=== PATIENT | female | born 1955 | race Caucasian/White ===

== ENCOUNTER 2021-02-18 15:04 | Inpatient (IN) | payer MEDICARE, OTHER ==
[~2021-02-18] VITALS: Ht 162.6 cm; Wt 60.3 kg
[2021-02-18 15:50] LABS: *BILIRUBIN,URIN NEGATIVE (NEGATIVE); *BLOOD, URINE NEGATIVE (NEGATIVE); *CLARITY,URINE CLEAR (CLEAR); *COLOR,URINE YELLOW (YELLOW); *KETONES,URINE NEGATIVE (NEGATIVE); *UROBILINOGEN,URINE 0.2 E.U./dl (NORMAL); LEUKOCYTE ESTERASE ,URINE NEGATIVE (NEGATIVE); NITRITE, URINE NEGATIVE (NEGATIVE); UGLUCOSE NEGATIVE (NEGATIVE)
[2021-02-18 15:51] LABS: HEMATOCRIT 46.5 % (31.2-41.9); MEAN CORPUSCULAR HEMOGLOBIN 29.9 uug (24.7-32.8); MEAN CORPUSCULAR VOLUME 88.7 fL (75.5-95.3); PLATELET COUNT (AUTO) 342 K/uL (179-408)
[2021-02-18 16:01] LABS: CARBON DIOXIDE 32 mmol/L (21-32); CHLORIDE 96 mmol/L (98-107); CREATININE 0.9 mg/dL (0.6-1.3); ETHANOL < 3 MG/DL (0-0); GLUCOSE 161 mg/dL (74-106); POTASSIUM 4.5 mmol/L (3.5-5.1); UREA NITROGEN, BLOOD 12 mg/dL (7-18)
[2021-02-18 16:04] LABS: *AMPHETAMINE, URINE NEGATIVE (NEGATIVE); *CANNABINOID, URINE NEGATIVE (NEGATIVE); *COCCAINE, URINE NEGATIVE (NEGATIVE); *OPIATE, URINE NEGATIVE (NEGATIVE); *PHENCYCLIDINE SCREEN,URINE NEGATIVE (NEGATIVE)
[2021-02-18 16:07] LABS: ALANINE AMINOTRANSFERASE 29 U/L (14-59); ALKALINE PHOSPHATASE 86 U/L (50-136); ASPARTATE AMINOTRANSFERASE 16 U/L (15-37); BILIRUBIN,DIRECT 0.1 mg/dL (0.0-0.2); BILIRUBIN,TOTAL 0.5 mg/dL (0.2-1.0); TOTAL PROTEIN, SERUM 8.8 g/dL (6.4-8.2)
[2021-02-18 16:08] LABS: ACETAMINOPHEN < 2.0 ug/mL (10-30)
--- NOTE | 2021-02-18 16:14 | NUR ---
CALLED MICHELL CHRISTINA, FOR THE MED LIST. SHE WILL FAX IT.
[2021-02-18 16:35] LABS: THYROID STIMULATING HORMONE 1.296 mIU/mL (0.358-3.740)
[2021-02-18] MEDS ORDERED: CLONIDINE HCL 0.1 MG TABLET PO ONE ×3 (17:30→18:30)
[2021-02-18] MEDS ORDERED: CLONIDINE HCL 0.1 MG TABLET ONE ×2 (17:34→18:19)
--- NOTE | 2021-02-18 17:37 | NUR ---
DINNER TRAY PROVIDED FOR PT. PT EATING WITH GOOD APETITE.
[2021-02-18] MEDS ORDERED: AMLO10TA59 PO (18:23)
[2021-02-18] MEDS ORDERED: HYDR-4077 PO (18:23)
[2021-02-18] MEDS ORDERED: ASPI-866 PO (18:23)
[2021-02-18] MEDS ORDERED: LEVO75TA7 PO (18:23)
[2021-02-18] MEDS ORDERED: MULT-594 PO (18:23)
[2021-02-18] MEDS ORDERED: IBUP-1957 PO (18:23)
[2021-02-18] MEDS ORDERED: ATOR40TA PO (18:23)
[2021-02-18] MEDS ORDERED: CYAN100T44 PO (18:23)
[2021-02-18] MEDS ORDERED: SIMV-49 PO (18:23)
[2021-02-18] MEDS ORDERED: SERT100T PO (18:23)
[2021-02-18] MEDS ORDERED: VITA400T9 PO (18:23)
[2021-02-18] MEDS ORDERED: MAGN400C PO (18:24)
--- NOTE | 2021-02-18 18:24 | NUR ---
MED RECON MADE BASED ON PT'S MEDICATION BOTTLES.
--- NOTE | 2021-02-18 18:25 | NUR ---
Gps/Banking Consultant- Received report janet Perez RN ER. Admitted from ER via [facility] accompanied by Nursing Grocery Caddy [facility]. Croatian female patient anxious, responding to internal stimuli, talking to self..A/O x2 anxious, figity, emotionally labile , holding stuff animals , claimed that its her baby. Oriented to unit setting
[2021-02-18 18:30] VITALS: BP 179/85
--- NOTE | 2021-02-18 18:30 | NUR ---
PT TRANSFERED TO [facility] IN STABLE CONDITION. PT REMAINED CALM/COOPERATIVE THEWHOLE ER STAY, ONE TO ONE SITTER AT BEDSIDE. PTDENEIS ANY PAIN,HEADACHE, N/V OR DIZZINESS.
[2021-02-18] MEDS ORDERED: ACETAMINOPHEN 325 MG TABLET PO PRN (18:45)
[2021-02-18] MEDS ORDERED: MAGNESIUM HYDROXIDE 30 ML LIQUID UDC PO PRN (18:45)
[2021-02-18] MEDS ORDERED: MAG HYDROX/AL HYDROX/SIMETH 30 ML LIQUID UDC PO PRN (18:45)
[2021-02-18] MEDS ORDERED: BLOOD SUGAR DIAGNOSTIC 1 EACH STRIP VI ONE (18:45)
[2021-02-18] MEDS ORDERED: IBUPROFEN 800 MG TABLET PO PRN (19:00)
[2021-02-18 20:07] VITALS: BP 126/54
[2021-02-18] MEDS: CLONAZEPAM 0.5 MG TABLET PO PRN (22:00)
[2021-02-18] MEDS: ATORVASTATIN 40 MG TABLET PO SCH (22:00)
[2021-02-19] MEDS: LEVOTHYROXINE SODIUM 75 MCG TABLET PO SCH (06:33)
[2021-02-19 07:30] VITALS: BP 109/53
[2021-02-19 07:37] LABS: BILIRUBIN,TOTAL 0.6 mg/dL (0.2-1.0); POTASSIUM 4.8 mmol/L (3.5-5.1); TOTAL PROTEIN, SERUM 7.7 g/dL (6.4-8.2)
--- NOTE | 2021-02-19 08:55 | NUR ---
WILLY Initial Discharge Note Pt currently resides at [facility] located at [address] [place] [address] ([phone]). WILLY contacted [facility] and spoke with Lalita, wool carder of facility, who stated police moved pt out and pt is not able to return. Lalita advised SW to follow-up with pt's case management social worker, Pascale العلي with [facility]. WILLY called and left message for Pascale requesting call back to discuss treatment and discharge plan. WILLY will continue to work with pt, case management social worker, and MD to ensure a safe and proper discharge.
[2021-02-19] MEDS ORDERED: VITAMIN E MIXED 400 UNIT PO SCH (09:00)
[2021-02-19] MEDS ORDERED: Medication Not On Formulary EA (Multivitamins (Multivitamin) 1 EACH) PO SCH (09:00)
[2021-02-19] MEDS ORDERED: CYANOCOBALAMIN 100 MCG TABLET PO SCH (09:00)
[2021-02-19] MEDS ORDERED: Medication Not On Formulary EA (Magnesium Oxide (Magnesium) 500 MG) PO SCH (09:00)
--- NOTE | 2021-02-19 09:02 | NUR ---
SW Facility Contact SW contacted [address], [place] [address] ([phone]) and spoke with Lalita, diesel maintenance electrician of facility, who stated police moved pt out and pt is not able to return. Lalita advised SW to follow-up with pt's caseworker protective services, Pascale العلي with [facility] ([phone]).
--- NOTE | 2021-02-19 09:03 | NUR ---
WILLY Touch Up CarverPhlebotomy Program Coordinator WILLY called and left message for Pascale with [facility] requesting call back to discuss treatment and discharge plan. Waiting for call back.
--- NOTE | 2021-02-19 09:04 | NUR ---
Firearms Report SW completed and submitted a [employer] firearms report for 5150 DTO certifications. A copy of report has been placed in patient chart.
[2021-02-19] MEDS: VITAMIN E 400 UNITS CAPSULE PO SCH (09:12)
[2021-02-19] MEDS: MAGNESIUM OXIDE 250 MG TABLET PO SCH (09:13)
[2021-02-19] MEDS: CYANOCOBALAMIN 1,000 MCG TABLET PO SCH (09:13)
[2021-02-19] MEDS: MULTIVITAMINS,THERAPEUTIC TABLET PO SCH (09:13)
[2021-02-19] MEDS: hydrALAZINE HCL 50 MG TABLET PO SCH ×2 (09:13→17:28)
[2021-02-19] MEDS: ASPIRIN EC 81 MG TABLET.DR PO SCH (09:14)
[2021-02-19] MEDS: AMLODIPINE 10 MG TABLET PO SCH (09:14)
[2021-02-19] MEDS ORDERED: DEXTROSE 50% 50 ML DISP.SYRIN IV PRN (14:30)
[2021-02-19] MEDS: BLOOD SUGAR DIAGNOSTIC 1 EACH STRIP VI SCH ×2 (16:47→21:02)
[2021-02-19 17:17] VITALS: BP 132/50
[2021-02-19] MEDS ORDERED: SIMVASTATIN 40 MG TABLET PO SCH ×2 (18:00)
[2021-02-19 19:59] VITALS: BP 127/62
[2021-02-19] MEDS: DIVALPROEX SPRINKLE 125 MG CAP.SPRINK PO SCH (20:03)
[2021-02-19] MEDS: OLANZAPINE 2.5 MG TABLET PO SCH (20:04)
[2021-02-19] MEDS: ATORVASTATIN 40 MG TABLET PO SCH (20:04)
[2021-02-19] MEDS: TEMAZEPAM 7.5 MG CAPSULE PO PRN (20:58)
[2021-02-19] MEDS: INSULIN REGULAR, HUMAN 300 UNIT/3 ML VIAL SQ PRN (21:04)
[2021-02-20] MEDS: LEVOTHYROXINE SODIUM 75 MCG TABLET PO SCH (06:34)
[2021-02-20] MEDS: BLOOD SUGAR DIAGNOSTIC 1 EACH STRIP VI SCH ×5 (06:39→20:20)
[2021-02-20 07:48] VITALS: BP 133/76
[2021-02-20] MEDS: hydrALAZINE HCL 50 MG TABLET PO SCH ×3 (09:00→16:27)
[2021-02-20] MEDS: CYANOCOBALAMIN 1,000 MCG TABLET PO SCH (09:04)
[2021-02-20] MEDS: OLANZAPINE 2.5 MG TABLET PO SCH ×2 (09:04→20:20)
[2021-02-20] MEDS: ASPIRIN EC 81 MG TABLET.DR PO SCH (09:04)
[2021-02-20] MEDS: DIVALPROEX SPRINKLE 125 MG CAP.SPRINK PO SCH ×2 (09:05→20:20)
[2021-02-20] MEDS: VITAMIN E 400 UNITS CAPSULE PO SCH (09:05)
[2021-02-20] MEDS: MULTIVITAMINS,THERAPEUTIC TABLET PO SCH (09:05)
[2021-02-20] MEDS: AMLODIPINE 10 MG TABLET PO SCH (09:05)
[2021-02-20] MEDS: MAGNESIUM OXIDE 250 MG TABLET PO SCH (09:06)
--- NOTE | 2021-02-20 09:11 | NUR ---
Patient pulse is 52, Hydralazine 50 mg not given.
--- NOTE | 2021-02-20 15:12 | NUR ---
Received patient awake in her room. A/OX 2 to person, place. Pt. affect is cooperative, passive, guarded, isolative. Compliant with medications. Ambulates without assistance. Self care. Continent. Reassurance given. Fall and safety precautions implemented.
[2021-02-20 16:21] VITALS: BP 104/53
--- NOTE | 2021-02-20 16:38 | NUR ---
Patient blood glucose is 101, no insulin needed.
[2021-02-20 20:00] VITALS: BP 128/44
[2021-02-20] MEDS: ATORVASTATIN 40 MG TABLET PO SCH (20:20)
[2021-02-20] MEDS: INSULIN REGULAR, HUMAN 300 UNITS/3 ML VIAL SQ PRN (20:26)
[2021-02-20] MEDS: TEMAZEPAM 7.5 MG CAPSULE PO PRN (21:23)
[2021-02-21] MEDS: LEVOTHYROXINE SODIUM 75 MCG TABLET PO SCH (06:21)
[2021-02-21] MEDS: BLOOD SUGAR DIAGNOSTIC 1 EACH STRIP VI SCH ×4 (06:21→20:42)
[2021-02-21 07:40] VITALS: BP 132/48
[2021-02-21] MEDS: DIVALPROEX SPRINKLE 125 MG CAP.SPRINK PO SCH ×2 (08:59→20:43)
[2021-02-21] MEDS: VITAMIN E 400 UNITS CAPSULE PO SCH (08:59)
[2021-02-21] MEDS: MULTIVITAMINS,THERAPEUTIC TABLET PO SCH (08:59)
[2021-02-21] MEDS: MAGNESIUM OXIDE 250 MG TABLET PO SCH (08:59)
[2021-02-21] MEDS: hydrALAZINE HCL 50 MG TABLET PO SCH ×2 (09:00→16:08)
[2021-02-21] MEDS: CYANOCOBALAMIN 1,000 MCG TABLET PO SCH (09:00)
[2021-02-21] MEDS: ASPIRIN EC 81 MG TABLET.DR PO SCH (09:00)
[2021-02-21] MEDS: AMLODIPINE 10 MG TABLET PO SCH (09:00)
[2021-02-21] MEDS: OLANZAPINE 2.5 MG TABLET PO SCH ×3 (09:00→20:43)
[2021-02-21 15:55] VITALS: BP 122/48
[2021-02-21] MEDS: INSULIN REGULAR, HUMAN 300 UNIT/3 ML VIAL SQ PRN (16:04)
[2021-02-21] MEDS: ATORVASTATIN 40 MG TABLET PO SCH (20:42)
[2021-02-21 20:53] VITALS: BP 151/51
[2021-02-21] MEDS: TEMAZEPAM 7.5 MG CAPSULE PO PRN (21:37)
[2021-02-22] MEDS: LEVOTHYROXINE SODIUM 75 MCG TABLET PO SCH (06:21)
[2021-02-22] MEDS: BLOOD SUGAR DIAGNOSTIC 1 EACH STRIP VI SCH ×4 (06:22→20:27)
[2021-02-22 07:37] VITALS: BP 139/70
[2021-02-22] MEDS: DIVALPROEX SPRINKLE 125 MG CAP.SPRINK PO SCH ×2 (08:37→20:26)
[2021-02-22] MEDS: OLANZAPINE 2.5 MG TABLET PO SCH ×3 (08:37→20:26)
[2021-02-22] MEDS: MULTIVITAMINS,THERAPEUTIC TABLET PO SCH (08:37)
[2021-02-22] MEDS: CYANOCOBALAMIN 1,000 MCG TABLET PO SCH (08:38)
[2021-02-22] MEDS: ASPIRIN EC 81 MG TABLET.DR PO SCH (08:38)
[2021-02-22] MEDS: AMLODIPINE 10 MG TABLET PO SCH (08:38)
[2021-02-22] MEDS: hydrALAZINE HCL 50 MG TABLET PO SCH ×2 (08:39→16:46)
[2021-02-22] MEDS: MAGNESIUM OXIDE 250 MG TABLET PO SCH (08:39)
[2021-02-22] MEDS: VITAMIN E 400 UNITS CAPSULE PO SCH (08:39)
--- NOTE | 2021-02-22 11:23 | NUR ---
WILLY Care Coordination Note WILLY received voice mail from Kassidy Ramos ([phone]) with Ramu Loera covering for pt's case briefer Pascale العلي ([phone]). WILLY left voice mail for Kassidy requesting call back to discuss discharge plan.
--- NOTE | 2021-02-22 11:37 | NUR ---
WILLY Care Coordination Note WILLY spoke with Kassidy Ramos ([phone]) with P Evaristo covering for pt's employment case manager Pascale العلي ([phone]) to discuss discharge plan. Kassidy to follow-up with [facility] Castillo ([phone]) to confirm if pt will be able to return when she is ready for discharge.
--- NOTE | 2021-02-22 11:48 | NUR ---
WILLY Discharge Plan Update WILLY spoke with Kassidy Ramos ([phone]) with USHA Loera covering for pt's disease case manager rn Pascale العلي ([phone]) to discuss discharge plan. Kassidy informed she spoke with Dori with admissions at [facility] who stated pt can come back but needs to stabilize to safely return. Kassidy informed USHA Loera will schedule appt with pt's psychiatrist Imani Landry ([phone]) when pt is discharged. Kassidy advised to call Kassidy or Pascale to assist pt in scheduling appt.
[2021-02-22] MEDS: INSULIN REGULAR, HUMAN 300 UNIT/3 ML VIAL SQ PRN (12:25)
[2021-02-22 16:10] VITALS: BP 135/45
[2021-02-22 20:08] VITALS: BP 146/54
[2021-02-22] MEDS: ATORVASTATIN 40 MG TABLET PO SCH (20:26)
[2021-02-22] MEDS: INSULIN REGULAR, HUMAN 300 UNITS/3 ML VIAL SQ PRN (20:30)
--- NOTE | 2021-02-22 20:45 | NUR ---
RECEIVED PATIENT IN HER ROOM IN BED. SHE IS NOTED AWAKE A/O X 2. SHE IS NOTED WITHDRAWN AND ISOLATIVE. SHE DENIED SI/HI/AH/VH SHE IS ABLE TO VERBALLY CFS. PATIENT NOTED WITH POOR INSIGHT AND JUDGMENT TO THE REASON FOR HER ADMISSION TO [facility]. SHE STATED THAT SHE IS HERE BECAUSE SHE [place]OWN CH[place]EN [place] AND THEIR FATHER DOES NO LET THEM CALL HER. SHE STATED, "I GET VERY SAD THIS TIME OF THE YEAR BECAUSE I HAVEN'T TALK TO MY CHILDREN IN A LONG TIME AND I MISS THEM". PATIENT WAS REASSURED FOR HER SAFETY. SAFETY AND FALL PRECAUTION IN PLACE. V/S STABLE, SHE WAS GIVEN PO FLUIDS AND SNACKS. WILL CONTINUE TO MONITOR.
[2021-02-22] MEDS: TEMAZEPAM 7.5 MG CAPSULE PO PRN (21:53)
[2021-02-23] MEDS: LEVOTHYROXINE SODIUM 75 MCG TABLET PO SCH (06:42)
[2021-02-23] MEDS: BLOOD SUGAR DIAGNOSTIC 1 EACH STRIP VI SCH ×4 (06:42→20:13)
[2021-02-23 07:30] VITALS: BP 138/58
[2021-02-23] MEDS: MAGNESIUM OXIDE 250 MG TABLET PO SCH (08:32)
[2021-02-23] MEDS: DIVALPROEX SPRINKLE 125 MG CAP.SPRINK PO SCH ×2 (08:32→20:17)
[2021-02-23] MEDS: VITAMIN E 400 UNITS CAPSULE PO SCH (08:32)
[2021-02-23] MEDS: ASPIRIN EC 81 MG TABLET.DR PO SCH (08:33)
[2021-02-23] MEDS: OLANZAPINE 2.5 MG TABLET PO SCH ×3 (08:33→20:16)
[2021-02-23] MEDS: MULTIVITAMINS,THERAPEUTIC TABLET PO SCH (08:33)
[2021-02-23] MEDS: AMLODIPINE 10 MG TABLET PO SCH (08:34)
[2021-02-23] MEDS: CYANOCOBALAMIN 1,000 MCG TABLET PO SCH (08:35)
[2021-02-23] MEDS: hydrALAZINE HCL 50 MG TABLET PO SCH ×2 (08:40→17:00)
--- NOTE | 2021-02-23 08:41 | NUR ---
Patient pulse is 53, Hydralazine 50 mg not given.
--- NOTE | 2021-02-23 11:44 | NUR ---
Patient blood glucose is 105, no regular insulin needed per sliding scale.
[2021-02-23 16:00] VITALS: BP 129/45
--- NOTE | 2021-02-23 16:29 | NUR ---
Received patient awake in her room. A/O X 3 to person, place. Pt. affect is cooperative, calm, sociable. Compliant with medications. Blood glucose 105 before lunch, no regular insulin given per sliding scale. Ambulates independently. Self care. Pt. is encourage to verbalize concerns. Fall and safety precautions implemented.
--- NOTE | 2021-02-23 17:09 | NUR ---
Patient diastolic is 45, Hydralazine 50 mg not given.
[2021-02-23 20:06] VITALS: BP 122/62
[2021-02-23] MEDS: INSULIN REGULAR, HUMAN 300 UNITS/3 ML VIAL SQ PRN (20:15)
[2021-02-23] MEDS: ATORVASTATIN 40 MG TABLET PO SCH (20:16)
[2021-02-23] MEDS: ATORVASTATIN 10 MG TABLET PO SCH (20:40)
[2021-02-23] MEDS: TEMAZEPAM 7.5 MG CAPSULE PO PRN (21:47)
--- NOTE | 2021-02-24 05:26 | NUR ---
Received the patient in the prather. Awake, alert and oriented. The patient was energetic with a bright affect. Multiple times during the night , this patient was woken up by her room mate. During those times, this patient has shown no signs of aggressive behavior or even irritability. Continuing to monitor the patient for any behavior escalation and for safety.
[2021-02-24] MEDS: LEVOTHYROXINE SODIUM 75 MCG TABLET PO SCH (06:11)
--- NOTE | 2021-02-24 06:11 | NUR ---
Pharmacy Note : At the start of the shift, this writer technical publications gave the patient Lipitor 40mg PO. Shortly after that, order was changed to Lipitor 10 mg, which was not given.
[2021-02-24 07:30] VITALS: BP 122/54
[2021-02-24] MEDS: FAMOTIDINE 20 MG TABLET PO SCH (08:30)
[2021-02-24] MEDS: MULTIVITAMINS,THERAPEUTIC TABLET PO SCH (08:30)
[2021-02-24] MEDS: MAGNESIUM OXIDE 250 MG TABLET PO SCH (08:30)
[2021-02-24] MEDS: VITAMIN E 400 UNITS CAPSULE PO SCH (08:30)
[2021-02-24] MEDS: ASPIRIN EC 81 MG TABLET.DR PO SCH (08:31)
[2021-02-24] MEDS: OLANZAPINE 2.5 MG TABLET PO SCH ×3 (08:31→20:14)
[2021-02-24] MEDS: DIVALPROEX SPRINKLE 125 MG CAP.SPRINK PO SCH ×2 (08:31→20:14)
[2021-02-24] MEDS: AMLODIPINE 10 MG TABLET PO SCH (08:31)
[2021-02-24] MEDS: hydrALAZINE HCL 50 MG TABLET PO SCH ×2 (08:32→16:43)
[2021-02-24] MEDS: CYANOCOBALAMIN 1,000 MCG TABLET PO SCH (08:33)
--- NOTE | 2021-02-24 15:43 | NUR ---
Received patient awake in her room. A/O X 2 -3 to person, place, environment. Pt. affect is calm, pleasant, friendly, cooperative. Compliant with medications. Patient was asked about home medications, but she was unable to remember what she was taking at home. Ambulates independently. Pt. is encourage to vent feelings and emotions. Fall and safety precautions implemented.
[2021-02-24 16:00] VITALS: BP 107/52
[2021-02-24 20:11] VITALS: BP 153/62
[2021-02-24] MEDS: ATORVASTATIN 10 MG TABLET PO SCH (20:14)
[2021-02-24] MEDS: TEMAZEPAM 7.5 MG CAPSULE PO PRN (22:51)
--- NOTE | 2021-02-25 02:09 | NUR ---
Received patient in her room, hyperverbal, interacts with staff and peers. Patient has poor insight and poor judgement. Able to follow command. Med compliant. Patient will remain in a psych facility for further evaluation and treatment.
[2021-02-25] MEDS: LEVOTHYROXINE SODIUM 75 MCG TABLET PO SCH (06:03)
[2021-02-25 07:30] VITALS: BP 136/78
[2021-02-25] MEDS: AMLODIPINE 10 MG TABLET PO SCH (08:19)
[2021-02-25] MEDS: FAMOTIDINE 20 MG TABLET PO SCH (08:19)
[2021-02-25] MEDS: MULTIVITAMINS,THERAPEUTIC TABLET PO SCH (08:19)
[2021-02-25] MEDS: DIVALPROEX SPRINKLE 125 MG CAP.SPRINK PO SCH ×2 (08:19→21:22)
[2021-02-25] MEDS: OLANZAPINE 2.5 MG TABLET PO SCH ×2 (08:19→12:22)
[2021-02-25] MEDS: MAGNESIUM OXIDE 250 MG TABLET PO SCH (08:20)
[2021-02-25] MEDS: ASPIRIN EC 81 MG TABLET.DR PO SCH (08:20)
[2021-02-25] MEDS: VITAMIN E 400 UNITS CAPSULE PO SCH (08:20)
[2021-02-25] MEDS: CYANOCOBALAMIN 1,000 MCG TABLET PO SCH (08:21)
[2021-02-25] MEDS: hydrALAZINE HCL 50 MG TABLET PO SCH ×2 (08:22→17:37)
--- NOTE | 2021-02-25 15:41 | NUR ---
Received patient awake in her room. A/O X 3 to person, place, environment. Pt. affect is pleasant, calm, cooperative. Compliant with medications. Ambulates independently. Pt. is encourage to vent feelings and emotions. Fall and safety precautions implemented.
[2021-02-25 16:00] VITALS: BP 126/70
[2021-02-25 20:00] VITALS: BP 128/53
[2021-02-25] MEDS: OLANZAPINE 5 MG TABLET PO SCH (21:23)
[2021-02-25] MEDS: ATORVASTATIN 10 MG TABLET PO SCH (21:23)
[2021-02-26] MEDS: TEMAZEPAM 7.5 MG CAPSULE PO PRN (01:42)
[2021-02-26] MEDS: LEVOTHYROXINE SODIUM 75 MCG TABLET PO SCH (06:11)
[2021-02-26 07:30] VITALS: BP 147/74
[2021-02-26] MEDS: ASPIRIN EC 81 MG TABLET.DR PO SCH (08:06)
[2021-02-26] MEDS: VITAMIN E 400 UNITS CAPSULE PO SCH (08:06)
[2021-02-26] MEDS: FAMOTIDINE 20 MG TABLET PO SCH (08:06)
[2021-02-26] MEDS: OLANZAPINE 2.5 MG TABLET PO SCH ×2 (08:06→12:41)
[2021-02-26] MEDS: MULTIVITAMINS,THERAPEUTIC TABLET PO SCH (08:06)
[2021-02-26] MEDS: MAGNESIUM OXIDE 250 MG TABLET PO SCH (08:06)
[2021-02-26] MEDS: DIVALPROEX SPRINKLE 125 MG CAP.SPRINK PO SCH ×2 (08:06→20:23)
[2021-02-26] MEDS: hydrALAZINE HCL 50 MG TABLET PO SCH ×2 (08:07→17:06)
[2021-02-26] MEDS: CYANOCOBALAMIN 1,000 MCG TABLET PO SCH (08:07)
[2021-02-26] MEDS: AMLODIPINE 10 MG TABLET PO SCH (08:07)
[2021-02-26 17:02] VITALS: BP 141/94
[2021-02-26 20:00] VITALS: BP 141/55
[2021-02-26] MEDS: CLONAZEPAM 0.5 MG TABLET PO PRN (20:23)
[2021-02-26] MEDS: OLANZAPINE 5 MG TABLET PO SCH (20:23)
[2021-02-26] MEDS: ATORVASTATIN 10 MG TABLET PO SCH (20:24)
[2021-02-27] MEDS: LEVOTHYROXINE SODIUM 75 MCG TABLET PO SCH (06:11)
[2021-02-27 07:30] VITALS: BP 113/59
[2021-02-27] MEDS: VITAMIN E 400 UNITS CAPSULE PO SCH (08:06)
[2021-02-27] MEDS: MAGNESIUM OXIDE 250 MG TABLET PO SCH (08:06)
[2021-02-27] MEDS: ASPIRIN EC 81 MG TABLET.DR PO SCH (08:06)
[2021-02-27] MEDS: DIVALPROEX SPRINKLE 125 MG CAP.SPRINK PO SCH ×2 (08:06→20:27)
[2021-02-27] MEDS: OLANZAPINE 2.5 MG TABLET PO SCH ×2 (08:07→12:03)
[2021-02-27] MEDS: MULTIVITAMINS,THERAPEUTIC TABLET PO SCH (08:07)
[2021-02-27] MEDS: FAMOTIDINE 20 MG TABLET PO SCH (08:07)
[2021-02-27] MEDS: CYANOCOBALAMIN 1,000 MCG TABLET PO SCH (08:07)
[2021-02-27] MEDS: hydrALAZINE HCL 50 MG TABLET PO SCH ×2 (08:09→16:30)
[2021-02-27] MEDS: AMLODIPINE 10 MG TABLET PO SCH (08:11)
[2021-02-27 16:00] VITALS: BP 140/58
[2021-02-27 20:00] VITALS: BP 147/46
[2021-02-27] MEDS: ATORVASTATIN 10 MG TABLET PO SCH (20:26)
[2021-02-27] MEDS: OLANZAPINE 5 MG TABLET PO SCH (20:26)
[2021-02-27] MEDS: TEMAZEPAM 7.5 MG CAPSULE PO PRN (21:51)
[2021-02-28] MEDS: LEVOTHYROXINE SODIUM 75 MCG TABLET PO SCH (06:23)
[2021-02-28 07:45] VITALS: BP 142/43
[2021-02-28] MEDS: AMLODIPINE 10 MG TABLET PO SCH (08:26)
[2021-02-28] MEDS: ASPIRIN EC 81 MG TABLET.DR PO SCH (08:26)
[2021-02-28] MEDS: hydrALAZINE HCL 50 MG TABLET PO SCH ×2 (08:26→16:36)
[2021-02-28] MEDS: DIVALPROEX SPRINKLE 125 MG CAP.SPRINK PO SCH ×2 (08:26→20:42)
[2021-02-28] MEDS: MULTIVITAMINS,THERAPEUTIC TABLET PO SCH (08:26)
[2021-02-28] MEDS: OLANZAPINE 2.5 MG TABLET PO SCH ×2 (08:26→12:37)
[2021-02-28] MEDS: FAMOTIDINE 20 MG TABLET PO SCH (08:26)
[2021-02-28] MEDS: MAGNESIUM OXIDE 250 MG TABLET PO SCH (08:26)
[2021-02-28] MEDS: VITAMIN E 400 UNITS CAPSULE PO SCH (08:26)
[2021-02-28] MEDS: CYANOCOBALAMIN 1,000 MCG TABLET PO SCH (08:27)
[2021-02-28 15:49] VITALS: BP 113/41
[2021-02-28 20:00] VITALS: BP 116/42
[2021-02-28] MEDS: ATORVASTATIN 10 MG TABLET PO SCH (20:42)
[2021-02-28] MEDS: OLANZAPINE 5 MG TABLET PO SCH (20:42)
[2021-02-28] MEDS: TEMAZEPAM 7.5 MG CAPSULE PO PRN (22:14)
[2021-03-01] MEDS: LEVOTHYROXINE SODIUM 75 MCG TABLET PO SCH (06:35)
[2021-03-01 07:43] VITALS: BP 113/69
[2021-03-01] MEDS: MULTIVITAMINS,THERAPEUTIC TABLET PO SCH (09:01)
[2021-03-01] MEDS: ASPIRIN EC 81 MG TABLET.DR PO SCH (09:01)
[2021-03-01] MEDS: VITAMIN E 400 UNITS CAPSULE PO SCH (09:02)
[2021-03-01] MEDS: CYANOCOBALAMIN 1,000 MCG TABLET PO SCH (09:02)
[2021-03-01] MEDS: FAMOTIDINE 20 MG TABLET PO SCH (09:02)
[2021-03-01] MEDS: MAGNESIUM OXIDE 250 MG TABLET PO SCH (09:02)
[2021-03-01] MEDS: DIVALPROEX SPRINKLE 125 MG CAP.SPRINK PO SCH ×2 (09:02→20:32)
[2021-03-01] MEDS: OLANZAPINE 2.5 MG TABLET PO SCH ×2 (09:02→12:46)
[2021-03-01] MEDS: hydrALAZINE HCL 50 MG TABLET PO SCH ×2 (09:03→16:52)
[2021-03-01] MEDS: AMLODIPINE 10 MG TABLET PO SCH (09:03)
--- NOTE | 2021-03-01 09:22 | NUR ---
WILLY Care Coordination Update WILLY contacted Pascale ([phone]) at [facility] for pt discharge 03/02/21. WILLY left a voicemail for a call back to discuss discharge update and confirm for discharge on 03/02/21.
[2021-03-01 15:43] VITALS: BP 148/60
[2021-03-01 20:00] VITALS: BP 153/62
[2021-03-01] MEDS: OLANZAPINE 5 MG TABLET PO SCH (20:25)
[2021-03-01] MEDS: ATORVASTATIN 10 MG TABLET PO SCH (20:25)
[2021-03-01] MEDS: TEMAZEPAM 7.5 MG CAPSULE PO PRN (22:14)
--- NOTE | 2021-03-02 06:04 | NUR ---
GPS: Remain calm and cooperative with meds and care. no behavior problem noted. slept 5.30 hrs through the night after took sleeping meds. continue plan of care.
[2021-03-02] MEDS: LEVOTHYROXINE SODIUM 75 MCG TABLET PO SCH (06:37)
--- NOTE | 2021-03-02 09:05 | NUR ---
WILLY Discharge Note Pt will be discharged to [facility] [address] [facility] [address] ([phone] phone via Ambulance transportation at 11AM. WILLY spoke with admin coordinator Stoney ([phone]) at the facility who states they are ready to accept the patient today. WILLY also spoke with Sirisha ([phone]) who manages at [facility] and she is aware of the patients return to the facility today. Pt is aware and agreeable with discharge plans. Pt is alert and oriented x4, is unable to plan for self-care at this time; however, is willing to accept care at [facility]. Pt denies any suicidal or homicidal ideation. Pt will follow-up at the facility with Psychiatrist, Dr. Stanley and Machine Feeder Floorperson, Dr. Keane. Pt presents with calm mood and congruent affect.
[2021-03-02] MEDS: MAGNESIUM OXIDE 250 MG TABLET PO SCH (09:11)
[2021-03-02] MEDS: MULTIVITAMINS,THERAPEUTIC TABLET PO SCH (09:11)
[2021-03-02] MEDS: FAMOTIDINE 20 MG TABLET PO SCH (09:11)
[2021-03-02] MEDS: OLANZAPINE 2.5 MG TABLET PO SCH (09:11)
[2021-03-02 09:12] VITALS: BP 141/58
[2021-03-02] MEDS: hydrALAZINE HCL 50 MG TABLET PO SCH (09:12)
[2021-03-02] MEDS: AMLODIPINE 10 MG TABLET PO SCH (09:12)
[2021-03-02] MEDS: VITAMIN E 400 UNITS CAPSULE PO SCH (09:12)
[2021-03-02] MEDS: ASPIRIN EC 81 MG TABLET.DR PO SCH (09:13)
[2021-03-02] MEDS: DIVALPROEX SPRINKLE 125 MG CAP.SPRINK PO SCH (09:13)
[2021-03-02] MEDS: CYANOCOBALAMIN 1,000 MCG TABLET PO SCH (09:13)
--- NOTE | 2021-03-02 10:36 | NUR ---
SW Contact Note: IWLLY contacted Sirisha ([phone]) at [facility] who is ready for pt to discharge to their facility today. WILLY contacted [facility] ([phone]) who confirmed pt's transportation at 11am.
--- NOTE | 2021-03-02 12:45 | NUR ---
GPS: Nursing Notes: Discharge Notes: Patient is awake and responding to her name, cooperative with nursing care, compliant with her medications, following staff directions, denies SI/HI, denies AH/VH, denies pain or discomfort, denies SOB, discharge to [facility] at [address] [place] [id number] . Patient to follow up with Dr. Stanley (psychiatrist) and Dr. Keane (second hand) for aftercare at the facility, report given to Sirisha , transported via [employer] to facility, took all her belongings with her.
== END 2021-03-02 12:45 | disposition home or self-care (01) | DRG 885 ==
LOC: ER 15:04 → GPS 18:38
PROVIDERS: ADMIT Nurse Practitioner Psychiatric/Mental Health; ATTEND Student in an Organized Health Care Education/Training Program
DX: F31.64 Bipolar disorder, current episode mixed, severe, with psychotic features (principal); I10 Essential (primary) hypertension; E03.9 Hypothyroidism, unspecified; E11.9 Type 2 diabetes mellitus without complications; E78.5 Hyperlipidemia, unspecified; Z79.82 Long term (current) use of aspirin; Z79.890 Hormone replacement therapy
CPT/HCPCS: 36415; 70030-TC; 71045; 84443; 85025; 93005; 97161; A4663; G0480; J1815